=== PATIENT | male | born 1945 | race Caucasian/White ===

== ENCOUNTER 2023-08-21 19:27 | Observation (INO) | payer OTHER ==
[2023-08-21 19:57] LABS: Absolute Lymphocytes (CBC) 2.4 K/uL (0.7-4.9); Hematocrit 40.1 % (39.6-49.0); Lymphocytes % 36.8 % (15.3-44.8); MCV 84.7 fL (80-100); MPV 7.2 fL (7.6-11.3); Platelets 223 thou/uL (152-406); RBC Red Blood Cell Count 4.73 M/uL (4.33-5.43)
[2023-08-21 19:58] LABS: Protime INR 0.99
[2023-08-21 20:02] LABS: Specific Gravity 1.007 (1.005-1.030); Urine Bilirubin NEGATIVE (Negative); Urine Blood Negative (Negative); Urine Clarity Clear (Clear); Urine Color Colorless (Yellow); Urine Glucose NEGATIVE (Negative); Urine Protein NEGATIVE (Negative); Urine Urobilinogen Normal (Normal)
[2023-08-21] MEDS ORDERED: NA CHLORIDE 0.9% 1,000 ML ONE (20:04)
[2023-08-21] MEDS ORDERED: FAMOTIDINE 20 MG/2 ML VIAL IV ONE (20:04)
[2023-08-21] MEDS ORDERED: METOPROLOL TAR 50 MG TAB ONE (20:04)
[2023-08-21] MEDS ORDERED: METOPROLOL TARTRATE 5 MG/5 ML INJ IV ONE (20:04)
[2023-08-21] MEDS ORDERED: MAGNESIUM SULFATE 1 gm IVPB 1 GM/100 ML BAG IV ONE (20:04)
[2023-08-21] MEDS ORDERED: DIGOXIN 0.25 MG/ML AMP ONE (20:04)
--- NOTE | 2023-08-21 20:22 | RAD REPORT ---
EXAM DESCRIPTION: John Single View08/21/2023 8:01 pm CLINICAL HISTORY: Chest pain COMPARISON: 2016 FINDINGS: The lungs appear clear of acute infiltrate. The heart is normal size Postsurgical changes involve the chest IMPRESSION: No acute abnormalities displayed
--- NOTE | 2023-08-21 20:22 | EDPHYS ---
Physician Documentation [facility] Name: Judit Curry Age: 78 yrs Sex: Male : 1945 Arrival Date: 08/21/2023 Time: 19:27 Bed 2 Private MD: ED Physician Chris Bruce HPI: 08/21 20:08 This 78 yrs old Male presents to ER via EMS with complaints of palpitations, keiry racing heart. 20:08 The patient or guardian reports chest pain that is located primarily in the substernal keiry area. Onset: just prior to arrival, today. The patient presents with a history of irregular heart beat, heart racing, heart skipping beats. Context: The symptoms occur at rest. Onset: The symptoms/episode began/occurred this morning, today. Duration: The patient or guardian reports a single episode, that is still ongoing. Modifying factors: The symptoms are aggravated by nothing. The symptoms are alleviated by nothing. The pain does not radiate. Associated signs and symptoms: Pertinent positives: chest pain, SOB. The chest pain is described as aching. Historical: - PMHx: 19:32 family history of cardiac problems; Hyperlipidemia; Myocardial infarction; Atrial rv fibrillation; - PSHx: 19:32 None; rv - Immunization history:: Adult Immunizations up to date. - Social history:: Smoking status: unknown. - Family history:: not pertinent. ROS: 20:08 Constitutional: Negative for fever, chills, and weight loss, Eyes: Negative for injury, keiry pain, redness, and discharge, ENT: Negative for injury, pain, and discharge, Neck: Negative for injury, pain, and swelling, Respiratory: Negative for shortness of breath, cough, wheezing, and pleuritic chest pain, Abdomen/GI: Negative for abdominal pain, nausea, vomiting, diarrhea, and constipation, Back: Negative for injury and pain, : Negative for injury, bleeding, discharge, and swelling, MS/Extremity: Negative for injury and deformity, Skin: Negative for injury, rash, and discoloration, Neuro: Negative for headache, weakness, numbness, tingling, and seizure, Psych: Negative for depression, anxiety, suicide ideation, homicidal ideation, and hallucinations, Allergy/Immunology: Negative for hives, rash, and allergies, Endocrine: Negative for neck swelling, polydipsia, polyuria, polyphagia, and marked weight changes, Hematologic/Lymphatic: Negative for swollen nodes, abnormal bleeding, and unusual bruising, 20:08 Cardiovascular: Positive for chest pain, palpitations, Exam: 20:08 Constitutional: This is a well developed, well nourished patient who is awake, alert, keiry and in no acute distress. Head/Face: Normocephalic, atraumatic. Eyes: Pupils equal round and reactive to light, extra-ocular motions intact. Lids and lashes normal. Conjunctiva and sclera are non-icteric and not injected. Cornea within normal limits. Periorbital areas with no swelling, redness, or edema. ENT: Nares patent. No nasal discharge, no septal abnormalities noted. Tympanic membranes are normal and external auditory canals are clear. Oropharynx with no redness, swelling, or masses, exudates, or evidence of obstruction, uvula midline. Mucous membranes moist. Neck: Trachea midline, no thyromegaly or masses palpated, and no cervical lymphadenopathy. Supple, full range of motion without nuchal rigidity, or vertebral point tenderness. No Meningismus. Chest/axilla: Normal chest wall appearance and motion. Nontender with no deformity. No lesions are appreciated. Respiratory: Lungs have equal breath sounds bilaterally, clear to auscultation and percussion. No rales, rhonchi or wheezes noted. No increased work of breathing, no retractions or nasal flaring. Abdomen/GI: Soft, non-tender, with normal bowel sounds. No distension or tympany. No guarding or rebound. No evidence of tenderness throughout. Back: No spinal tenderness. No costovertebral tenderness. Full range of motion. Male : Normal genitalia with no discharge or lesions. Skin: Warm, dry with normal turgor. Normal color with no rashes, no lesions, and no evidence of cellulitis. MS/ Extremity: Pulses equal, no cyanosis. Neurovascular intact. Full, normal range of motion. Neuro: Awake and alert, GCS 15, oriented to person, place, time, and situation. Cranial nerves II-XII grossly intact. Motor strength 5/5 in all extremities. Sensory grossly intact. Cerebellar exam normal. Normal gait. Psych: Awake, alert, with orientation to person, place and time. Behavior, mood, and affect are within normal limits. 20:08 Cardiovascular: Rate: actual rate is 113 bpm, Rhythm: irregularly irregular, Pulses: Pulses are 4+ in bilateral radial, brachial, femoral, popliteal, posterior tibial and and dorsalis pedis arteries.. Heart sounds: normal, Edema: is not appreciated, JVD: is not appreciated, 20:08 ECG was reviewed by the Attending Physician. Vital Signs: 19:29 BP 193 / 106; Pulse 101; Resp 20; Temp 98; Pulse Ox 96% on R/A; Weight 73.48 kg; Height rv 5 ft. 7 in. ; 20:10 BP 142 / 84; Pulse 82; Resp 17; Pulse Ox 97% on R/A; rv 19:29 Body Mass Index 25.37 (73.48 kg, 170.18 cm) rv MDM: 19:30 Patient medically screened. keiry 20:16 Differential diagnosis: abnormal EKG, acute myocardial infarction, anxiety, chest wall keiry pain, costochondritis, arrythmia, dehydration, hiatal hernia, peptic ulcer disease, pericarditis, pneumonia, pulmonary embolus, stable angina, thoracic aortic disection, unstable angina. HEART Score: History: Slightly Suspicious (0), ECG: Non specific repolarization disturbance / LBTB / PM (1), Age: > or = 65 years (2), Risk Factors: > or = 3 Risk factors for atherosclerotic disease (2), [Hypercholesterolemia] [Hypertension] [+ Family HX] Troponin: < or = 1 x Normal Limit (0). The patient was given aspirin in the Emergency Department. EDMUNDO Risk Score: 1 - patient's age is greater or equal to 65 years, 1 - Three or more CAD risk factors, 1- Known CAD, TOTAL SCORE = 3. Data reviewed: vital signs, nurses notes, EMS record, lab test result(s), EKG, radiologic studies, plain films. Consideration of Admission/Observation Patient was admitted/placed on observation. Escalation of care including admission/observation considered. I considered the following discharge prescriptions or medication management in the emergency department Medications were administered in the Emergency Department. See MAR. Independent interpretation of the following test(s) in the Emergency Department EKG: See my EKG interpretation above. Test considered but Not performed: Ultrasound 2 d echo . Care significantly affected by the following chronic conditions: Hypertension, cad, mi, atrial fibrillation. 08/21 19:32 Order name: Basic Metabolic Panel; Complete Time: 20:45 keiry 08/21 19:32 Order name: CBC with Diff; Complete Time: 20:22 keiry 08/21 19:32 Order name: LFT's; Complete Time: 20:45 keiry 08/21 19:32 Order name: Magnesium; Complete Time: 20:45 keiry 08/21 19:32 Order name: NT PRO-BNP; Complete Time: 20:45 keiry 08/21 19:32 Order name: PT-INR; Complete Time: 20:22 keiry 08/21 19:32 Order name: Troponin HS; Complete Time: 20:45 keiry 08/21 19:32 Order name: Lipase; Complete Time: 20:45 keiry 08/21 19:32 Order name: Urinalysis w/ reflexes; Complete Time: 20:22 keiry 08/21 19:32 Order name: TSH; Complete Time: 20:45 keiry 08/21 20:33 Order name: T4 Free; Complete Time: 20:45 EDFL 08/21 20:51 Order name: Basic Metabolic Panel EDMS 08/21 20:51 Order name: Basic Metabolic Panel EDMS 08/21 20:51 Order name: CBC with Automated Diff EDMS 08/21 20:51 Order name: CBC with Automated Diff EDMS 08/21 20:51 Order name: Magnesium EDMS 08/21 20:52 Order name: Magnesium EDMS 08/21 20:52 Order name: Troponin High Sensitivity EDMS 08/21 20:52 Order name: Troponin High Sensitivity EDMS 08/21 20:52 Order name: Troponin High Sensitivity EDMS 08/21 20:52 Order name: Troponin High Sensitivity EDMS 08/21 19:32 Order name: XRAY Chest (1 view); Complete Time: 20:27 keiry 08/21 19:32 Order name: EKG; Complete Time: 19:33 keiry 08/21 20:49 Order name: CONS Physician Consult EDFL 08/21 19:32 Order name: Cardiac monitoring; Complete Time: 20:09 keiry 08/21 19:32 Order name: EKG - Nurse/Tech; Complete Time: 20:09 keiry 08/21 19:32 Order name: IV Saline Lock; Complete Time: 20:09 keiry 08/21 19:32 Order name: Labs collected and sent; Complete Time: 20:09 keiry 08/21 19:32 Order name: O2 Per Protocol; Complete Time: 20:09 keiry 08/21 19:32 Order name: O2 Sat Monitoring; Complete Time: 20: [facility] 08/21 19:32 Order name: IV Saline Lock - Large Bore; Complete Time: : [facility] EC: Rate is 113 beats/min. Rhythm is regular. QRS [place] is Normal. IA interval is normal. keiry QRS interval is normal. QT interval is normal. No Q waves. T waves are Normal. No ST changes noted. Clinical impression: Atrial Fibrillation and No evidence of ischemia. Interpreted by me. Reviewed by me. Administered Medications: 20: Drug: NS 0.9% IV 1000 ml IV at 125 ml/hr continuous Route: IV; Rate: 125 ml/hr; Site: rv right antecubital; 20:08 Drug: Metoprolol IVP 5 mg IVP once; Hold for SBP <100 or HR <60. Route: IVP; Site: rv right antecubital; 20:09 Drug: Metoprolol PO 50 mg PO once Route: PO; rv 20:09 Drug: Digoxin IVP 0.5 mg IVP once Route: IVP; Site: right antecubital; rv 20:09 Drug: Famotidine IVP 20 mg IVP once; dilute with 10 mL 0.9% NaCl; give over 2 minutes rv Route: IVP; Site: right antecubital; 20:09 Drug: Magnesium Sulfate IVPB 1 grams IVPB once over 1 hrs Route: IVPB; Infused Over: 1 rv hrs; Site: right antecubital; 20:09 Drug: NS 0.9% IV 500 ml IV at bolus once Route: IV; Rate: bolus; Site: right rv antecubital; 20:58 Drug: Potassium PO Effervescent Tablet 50 mEq PO once; dissolve in 4 ounces of water or jb4 juice Route: PO; 21:12 Not Given (Hemodynamic Parameters): metoprolol5 mg IVP once; Hold for SBP <100 or HR bp <60. 21:12 Not Given (Hemodynamic Parameters): metoprolol5 mg IVP once; Hold for SBP <100 or HR bp <60. 21:26 Drug: Metoprolol IVP 5 mg IVP once; Hold for SBP <100 or HR <60. Route: IVP; Site: jb4 right forearm; 21:35 Not Given (Physician Discretion): metoprolol5 mg IVP once; Hold for SBP <100 or HR <60. jb4 Disposition Summary: 08/21/23 20:21 Hospitalization Ordered Notes: Hospitalization Status: Inpatient Admission keiry [facility] keiry Condition: Stable keiry Problem: new keiry Symptoms: have improved keiry Bed/Room Type: Standard keiry Room Assignment: 230(08/21/23 20:51) Provider: Misael Ha(08/21/23 21:14) keiry Diagnosis - Persistent atrial fibrillation - new onset keiry - Palpitations keiry Forms: - Medication Reconciliation Form keiry - SBAR form keiry - Leadership Thank You Letter keiry Signatures: Dispatcher [employer] EDChris German MD MD cha Garcia, Cindy RN RN cg Cedric Horn RN RN jb4 Carl Esqueda RN RN rv Ashkan Pryor RN bp Corrections: (The following items were deleted from the chart) 20:51 20:21 keiry 21:14 20:21 Preeti Adams cha keiry
--- NOTE | 2023-08-21 20:22 | ER ---
Nurse's Notes [facility] Name: Judit Curry Age: 78 yrs Sex: Male : 1945 Arrival Date: 08/21/2023 Time: 19:27 Bed 2 Private MD: Diagnosis: Persistent atrial fibrillation-new onset;Palpitations Presentation: 08/21 19:29 Chief complaint: EMS states: SUDDEN ONSET OF DIZZINESS. SVT ON THE MONITOR, WAS GIVEN rv ADENOSINE TOTAL OF 24MG IV. COMPLAINING OF MILD CHEST PRESSURE, LEFT ANT CHEST WALL, NON RADIATING. HX OF ND, A-FIB. Coronavirus screen: At this time, the client does not indicate any symptoms associated with coronavirus-19. Ebola Screen: No symptoms or risks identified at this time. Initial Sepsis Screen: Does the patient meet any 2 criteria? No. Patient's initial sepsis screen is negative. Does the patient have a suspected source of infection? No. Patient's initial sepsis screen is negative. Risk Assessment: Do you want to hurt yourself or someone else? Patient reports no desire to harm self or others. Onset of symptoms was August 21, 2023. 19:29 Method Of Arrival: EMS: [facility] rv 19:29 Acuity: MARILU 2 rv Triage Assessment: 19:32 General: Appears comfortable, Behavior is calm, cooperative. Pain: Complains of pain in rv chest. Neuro: Level of Consciousness is awake, alert, obeys commands, Oriented to person, place, time, situation. Cardiovascular: Capillary refill < 3 seconds Patient's skin is warm and dry. Rhythm is atrial fibrillation with rapid ventricular response. Cardiovascular: Reports chest pain. Respiratory: Airway is patent Respiratory effort is even, unlabored. GI: No signs and/or symptoms were reported involving the gastrointestinal system. : No signs and/or symptoms were reported regarding the genitourinary system. Musculoskeletal: No signs and/or symptoms reported regarding the musculoskeletal system. Historical: - PMHx: 19:32 family history of cardiac problems; Hyperlipidemia; Myocardial infarction; Atrial rv fibrillation; - PSHx: 19:32 None; rv - Immunization history:: Adult Immunizations up to date. - Social history:: Smoking status: unknown. - Family history:: not pertinent. Screenin:33 [facility] ED Fall Risk Assessment (Adult) History of falling in the last 3 months, rv including since admission No falls in past 3 months (0 pts) Confusion or Disorientation No (0 pts) Intoxicated or Sedated No (0 pts) Impaired Gait No (0 pts) Mobility Assist Device Used No (0 pt) Altered Elimination No (0 pt) Score/Fall Risk Level 0 - 2 = Low Risk Oriented to surroundings, Maintained a safe environment, Educated pt \T\ family on fall prevention, incl call for assistance when getting out of bed, Assessed \T\ reinforced patient's understanding of fall precautions, Provided non-skid footwear, Hourly rounding (assess needs \T\ fall precautionary measures) done, Used ambulatory aids as needed (educated on \T\ assisted with), Used gait belt as appropriate. Abuse screen: Denies threats or abuse. Denies injuries from another. Nutritional screening: No deficits noted. Tuberculosis screening: No symptoms or risk factors identified. Assessment: 19:33 Reassessment: SEE TRIAGE NOTES. rv Vital Signs: 19:29 BP 193 / 106; Pulse 101; Resp 20; Temp 98; Pulse Ox 96% on R/A; Weight 73.48 kg; Height rv 5 ft. 7 in. ; 20:10 BP 142 / 84; Pulse 82; Resp 17; Pulse Ox 97% on R/A; rv 19:29 Body Mass Index 25.37 (73.48 kg, 170.18 cm) rv ED Course: 19:29 Patient arrived in ED. rv1 19:29 Carl Esqueda RN is Primary Nurse. rv 19:30 Chris Bruce MD is Attending Physician. keiry 19:31 Triage completed. rv 19:32 Arm band placed on right wrist. rv 19:33 Patient has correct armband on for positive identification. Client placed on continuous rv cardiac and pulse oximetry monitoring. NIBP monitoring applied. Pulse ox on. 19:33 Maintain EMS IV. Dressing intact. Good blood return noted. Site clean \T\ dry. Gauge \T\ rv site: 20 RAC. 20:03 XRAY Chest (1 view) In Process Unspecified. EDMS 20:10 Inserted saline lock: 20 gauge in right forearm, using aseptic technique. rv 20:18 Preeti Adams MD is Hospitalizing Provider. keiry 21:01 No provider procedures requiring assistance completed. Patient admitted, IV remains in rv place. 21:14 Misael Ha MD is Hospitalizing Provider. keiry Administered Medications: 20:08 Drug: NS 0.9% IV 1000 ml IV at 125 ml/hr continuous Route: IV; Rate: 125 ml/hr; Site: rv right antecubital; 20:08 Drug: Metoprolol IVP 5 mg IVP once; Hold for SBP <100 or HR <60. Route: IVP; Site: rv right antecubital; 20:09 Drug: Metoprolol PO 50 mg PO once Route: PO; rv 20:09 Drug: Digoxin IVP 0.5 mg IVP once Route: IVP; Site: right antecubital; rv 20:09 Drug: Famotidine IVP 20 mg IVP once; dilute with 10 mL 0.9% NaCl; give over 2 minutes rv Route: IVP; Site: right antecubital; 20:09 Drug: Magnesium Sulfate IVPB 1 grams IVPB once over 1 hrs Route: IVPB; Infused Over: 1 rv hrs; Site: right antecubital; 20:09 Drug: NS 0.9% IV 500 ml IV at bolus once Route: IV; Rate: bolus; Site: right rv antecubital; 20:58 Drug: Potassium PO Effervescent Tablet 50 mEq PO once; dissolve in 4 ounces of water or jb4 juice Route: PO; 21:12 Not Given (Hemodynamic Parameters): metoprolol5 mg IVP once; Hold for SBP <100 or HR bp <60. 21:12 Not Given (Hemodynamic Parameters): metoprolol5 mg IVP once; Hold for SBP <100 or HR bp <60. 21:26 Drug: Metoprolol IVP 5 mg IVP once; Hold for SBP <100 or HR <60. Route: IVP; Site: jb4 right forearm; 21:35 Not Given (Physician Discretion): metoprolol5 mg IVP once; Hold for SBP <100 or HR <60. jb4 Medication: 19:33 VIS not applicable for this client. rv Outcome: 20:21 Decision to Hospitalize by Provider. keiry 21:35 Admitted to Med/surg accompanied by tech, via wheelchair, room 230, with chart, jb4 21:35 Condition: stable 21:35 Discharge instructions given to patient, Instructed on the need for admit, Demonstrated understanding of instructions, 21:36 Patient left the ED. jb4 Signatures: Dispatcher [employer] Chris Cool MD MD cha Bryson, James RN RN jb4 Carl Esqueda RN RN Alta Armstrong rv1 Ashkan Pryor RN bp
[2023-08-21 20:30] LABS: ALT/SGPT 29 U/L (16-61); AST/SGOT 27 U/L (15-37); Albumin 3.4 g/dL (3.4-5.0); Alkaline Phosphatase 110 U/L (45-117); BUN Blood Urea Nitrogen 16 mg/dL (7-18); Bicarbonate 25 mEq/L (21-32); Bilirubin Direct < 0.1 mg/dL (0-0.2); Bilirubin Indirect, Calculated ND mg/dL (0.2-0.8); Bilirubin Total 0.3 mg/dL (0.2-1.0); Glomerular Filtration Rate 76 ml/min (=/>90); Glucose Level 120 mg/dL (74-106); Lipase 52 U/L (13-75); Magnesium 2.2 mg/dL (1.6-2.4); NT PRO-BNP 137 pg/mL (<450); Potassium 3.5 mEq/L (3.5-5.1); Protein, Total 6.9 g/dL (6.4-8.2); Sodium Level 141 mEq/L (136-145); Troponin High Sensitivity 7.9 pg/mL (<58.9)
--- NOTE | 2023-08-21 20:40 | P.HP ---
Certification for Inpatient Patient admitted to: Observation With expected LOS: <2 Midnights Patient will require the following post-hospital care: None Practitioner: I am a practitioner with admitting privileges, knowledge of patient current condition, hospital course, and medical plan of care. Services: Services provided to patient in accordance with Admission requirements found in Title 42 Section 412.3 of the Code of Federal Regulations Patient History Date of Service: 08/21/23 Reason for admission: Palpitations History of Present Illness: 78-year-old male with a past medical history of hypertension, hyperlipidemia, MD, atrial fibrillation presents to the emergency room with palpitations. He reports associated chest pain that is describes substernal that occurred prior today. 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 He reports episode of atrial fibrillation CAB postop previously. EKG Rate is 113 beats/min. Rhythm is regular. QRS [place] is Normal. [place] interval is normal. QRS interval is normal. QT interval is normal. No Q waves. T waves are Normal. No ST changes noted. Clinical impression: Atrial Fibrillation and No evidence of ischemia. 9 BP 193 / 106; Pulse 101; Resp 20; Temp 98; Pulse Ox 96% on R/A, patient was treated with metoprolol 5 mg IVP, mag sulfate, Pepcid, dig IVP 0.5x1, metoprolol 50 p.o. x1. Plan to admit for A-fib RVR, with cardiology to consult. Laboratory evaluation CBC unremarkable CMP slightly elevated blood glucose 120 mild hypocalcemia at 7.6, BUN/creatinine potassium normal. Hypothyroidism TSH 3.760. UA negative, chest x-ray no acute abnormalities Allergies No Known Allergies Allergy (Unverified 06/23/16 00:33) Home Medications: NK [No Home Meds] 08/21/23 - Past Medical/Surgical History Diabetic: No -: high cholesterol -: tinnitis -: Hypertension -: Previous episode atrial fibrillation -: heart cath -: appy - Family History Father -: Heart disease Mother -: Other (see notes) Notes: dementia - Social History Alcohol use: Yes CD- Drugs: No Caffeine use: Yes Review of Systems 10-point ROS is otherwise unremarkable Physical Examination - Physical Exam General: Alert, In no apparent distress, Oriented x3, Oriented x2 HEENT: Atraumatic, Normocephalic, PERRLA Neck: Supple, 2+ carotid pulse no bruit, JVD not distended Respiratory: Clear to auscultation bilaterally, Normal air movement Cardiovascular: No edema, Normal pulses, Irregular heart rate/rhythm Capillary refill: <2 Seconds Gastrointestinal: Normal bowel sounds, Soft and benign, Non-distended Musculoskeletal: No clubbing, No swelling Neurological: Normal gait, Normal speech, Normal strength at 5/5 x4 extr - Studies Laboratory Data (last 24 hrs) 08/21/23 08/21/23 08/21/23 19:40 19:40 19:40 WBC 6.60 Hgb 13.6 Hct 40.1 Plt Count 223 PT 10.9 INR 0.99 Sodium 141 Potassium 3.5 BUN 16 Creatinine 1.02 Glucose 120 H Magnesium 2.2 Total Bilirubin 0.3 AST 27 ALT 29 Alkaline Phosphatase 110 Lipase 52 Assessment and Plan - Plan Assessment and plan A-fib RVR-acute History of a CABG patient (denies taking medications for hypertension hyperlipidemia, anticoagulation) Hypothyroidism Hypocalcemia Occasional alcohol use DVT prophylaxis Assessment and plan A-fib RVR-acute History of a CABG patient (denies taking medications for hypertension hyperlipidemia, anticoagulation) Cardiology consult, IV metoprolol, p.o. metoprolol added, Lipid panel in the a.m., A1c in the a.m., trend blood pressures, heart rate Telemetry EKG Rate is 113 beats/min. Rhythm is regular. QRS [place] is Normal. IN interval is normal. QRS interval is normal. QT interval is normal. No Q waves. T waves are Normal. No ST changes noted. Clinical impression: Atrial Fibrillation and No evidence of ischemia. 9 BP 193 / 106; Pulse 101; Resp 20; Temp 98; Pulse Ox 96% on R/A, patient was treated with metoprolol 5 mg IVP, mag sulfate, Pepcid, dig IVP 0.5x1, metoprolol 50 p.o. x1. chest x-ray no acute abnormalities Hypothyroidism Start low-dose Synthroid Hypothyroidism TSH 3.760. UA negative, Hypocalcemia Trend electrolytes replace as needed mild hypocalcemia at 7.6 Alcohol use Educated on moderation cessation Diet cardiac Full code DVT Lovenox Discharge Plan: Home Plan to discharge in: 24 Hours - Advance Directives Does patient have a Living Will: No Does patient have a Durable POA for Healthcare: No - Code Status/Comfort Care Code Status: Full Code Physician Review: Patient Assessed, Agree with Above Assessment and Plan Critical Care: No Time Spent Managing Pts Care (In Minutes): 50
[2023-08-21] MEDS ORDERED: METOPROLOL TARTRATE 5 MG/5 ML INJ IV PRN (20:47)
[2023-08-21] MEDS ORDERED: ACETAMINOPHEN 500 MG TAB PO PRN (20:47)
[2023-08-21] MEDS ORDERED: POTASSIUM 25 MEQ EFFERV TAB ONE (21:04)
[2023-08-21 21:55] VITALS: BMI 22.7
[2023-08-21 22:49] VITALS: O2SAT 97
[2023-08-22 04:05] LABS: Absolute Lymphocytes (CBC) 1.8 K/uL (0.7-4.9); Lymphocytes % 28.6 % (15.3-44.8); MCV 85.1 fL (80-100); MPV 7.3 fL (7.6-11.3); Platelets 200 thou/uL (152-406); RBC Red Blood Cell Count 4.47 M/uL (4.33-5.43)
[2023-08-22 04:26] LABS: Magnesium 2.5 mg/dL (1.6-2.4); Potassium 5.3 mEq/L (3.5-5.1)
[2023-08-22 04:49] LABS: Troponin High Sensitivity 62.2 pg/mL (<58.9)
[2023-08-22] MEDS ORDERED: METOPROLOL TAR 25 MG TAB PO SCH (06:00)
[2023-08-22] MEDS ORDERED: LEVOTHYROXINE SOD 0.025 MG TAB PO SCH (06:30)
[2023-08-22] MEDS ORDERED: ENOXAPARIN 40 MG/0.4 ML SQ SCH (09:00)
[2023-08-22] MEDS ORDERED: ASPIRIN 325 MG TAB PO SCH (09:00)
[2023-08-22 09:07] VITALS: BP 161/76; TEMP 97
--- NOTE | 2023-08-22 12:51 | P.DS ---
Admission Date: 08/21/23 Discharge Date: 08/22/23 Disposition: ROUTINE DISCHARGE Discharge Condition: FAIR Reason for Admission: Palpitations Brief History of Present Illness: New onset A-fib Hospital Course: Patient is 78 years of age admitted with sudden onset of irregular heartbeat feeling dizzy had a history of CABG before prior history of atrial fibrillation he was admitted did well in by cardiology plan was to rate controlled with metoprolol and Eliquis to follow-up with cardiology chest x-ray was also clear at time of discharge patient was doing well no further dizziness vital signs all stable chest clear descriptions faxed Vital Signs/Physical Exam: Temp Pulse Resp BP Pulse Ox 97.0 F 48 L 23 H 161/76 H 99 08/22/23 08:00 08/22/23 08:00 08/22/23 08:00 08/22/23 08:00 08/22/23 08:00 Laboratory Data at Discharge: WBC 6.20 thou/uL (4.3-10.9) 08/22/23 03:41 Hgb 12.7 g/dL (13.6-17.9) L 08/22/23 03:41 Hct 38.0 % (39.6-49.0) L 08/22/23 03:41 Plt Count 200 thou/uL (152-406) 08/22/23 03:41 PT 10.9 SECONDS (9.5-12.5) 08/21/23 19:40 INR 0.99 08/21/23 19:40 Sodium 142 mEq/L (136-145) 08/22/23 03:41 Potassium 5.3 mEq/L (3.5-5.1) H D 08/22/23 03:41 BUN 15 mg/dL (7-18) 08/22/23 03:41 Creatinine 1.03 mg/dL (0.70-1.30) 08/22/23 03:41 Glucose 103 mg/dL (74-106) 08/22/23 03:41 Magnesium 2.5 mg/dL (1.6-2.4) H 08/22/23 03:41 Total Bilirubin 0.3 mg/dL (0.2-1.0) 08/21/23 19:40 AST 27 U/L (15-37) 08/21/23 19:40 ALT 29 U/L (16-61) 08/21/23 19:40 Alkaline Phosphatase 110 U/L (45-117) 08/21/23 19:40 Triglycerides Cancelled 08/22/23 06:00 Cholesterol Cancelled 08/22/23 06:00 HDL Cholesterol Cancelled 08/22/23 06:00 Cholesterol/HDL Ratio Cancelled 08/22/23 06:00 Lipase 52 U/L (13-75) 08/21/23 19:40 Home Medications: Apixaban [Eliquis] 5 mg PO BID 30 Days #60 tab 08/22/23 Metoprolol Tartrate [Lopressor*] 25 mg PO BID 6AM 6PM 30 Days #60 tab 08/22/23 New Medications: Apixaban [Eliquis] 5 mg PO BID 30 Days #60 tab Metoprolol Tartrate [Lopressor*] 25 mg PO BID 6AM 6PM 30 Days #60 tab Followup: Mitch Rudd DO [Primary Care Provider] - 1-2 Weeks Drew Brizuela MD [ACTIVE - CAN ADMIT] - 1-2 Weeks
--- NOTE | 2023-08-22 16:59 | EKG ---
Test Date: 2023-08-21 Test Time: 19:39:13 Laundry Clerk: RV MEASUREMENT RESULTS: Intervals: Rate: 113 CO: 114 QRSD: 88 QT: 318 QTc: 436 [place]: P: 61 CO: 114 QRS: 63 T: 242 INTERPRETIVE STATEMENTS: Sinus tachycardia with premature atrial complexes ST & T wave abnormality, consider inferolateral ischemia Abnormal ECG Compared to ECG 06/24/2016 05:34:49 Atrial premature complex(es) now present ST (T wave) deviation now present Sinus bradycardia no longer present T-wave abnormality no longer present Possible ischemia still present Electronically Signed On 08-22-23 16:56:21 CDT by Drew Brizuela
--- NOTE | 2023-08-22 22:05 | CON ---
Date of Consultation: 08/22/2023 Reason For Consultation: Atrial fibrillation. History Of Present Illness: A 78-year-old male with history of hypertension, dyslipidemia, coronary artery disease, and paroxysmal atrial fibrillation, presented with palpitation, found to be in atrial fibrillation with rapid ventricular response. He denies having chest pain or shortness of breath wi th it. After metoprolol, he converted into sinus rhythm and has been in sinus rhythm since. Past Medical History: As outlined above in the HPI. Medications: Refer reconciliation sheet for detailed list. Allergies: NO KNOWN DRUG ALLERGIES. Family History: No premature coronary artery disease or cancer. Social History: He does not smoke. He drinks occasionally. He does not use any drugs. Review of Systems: All systems reviewed are negative except as mentioned in HPI. Physical Examination: Vital Signs: Reviewed. Head and Neck: Pupils are equal, reactive to light. Intact eye movements. No JVD. No cervical lym phadenopathy. Neck is supple. Thyroid is not enlarged. Lungs: Clear to auscultation bilaterally. No rhonchi, wheezing, or crackles. No accessory muscle u se. Heart: Regular rate and rhythm. No extra sounds. Abdomen: Soft, nontender. Bowel sounds positive. No organomegaly. No masses or hernia. No rigidi ty or rebound. Extremities: No edema, clubbing, or cyanosis. Intact pulses. Skin: No rash. Neurologic: Alert, awake, oriented x3. No acute focal deficits appreciated. Investigations: Cardiac enzymes x2 are negative. BUN 16, creatinine 1.02. Assessment/recommendation: 1.Atrial fibrillation converted to sinus rhythm. Continue metoprolol and Eliquis 5 mg twice a day. The patient can be released. Follow up with me in the office in 1 week. 2.Borderline elevated troponin 62.2. We will plan for outpatient stress test. 3.Dyslipidemia. LDL is 166. Recommend Lipitor 40 mg at bedtime. Follow up with me post discharge within 1 week. SR/MODL Voice ID: [id number] Report ID: [id number]
== END 2023-08-22 11:20 | disposition home or self-care (01) ==
LOC: ER 19:27 → ERHOLD 20:46 → 2ND 21:11
PROVIDERS: ADMIT Internal Medicine Sleep Medicine; ATTEND Internal Medicine Sleep Medicine
DX: I48.91 Unspecified atrial fibrillation (principal); I10 Essential (primary) hypertension; E78.5 Hyperlipidemia, unspecified; I25.2 Old myocardial infarction; E03.9 Hypothyroidism, unspecified; E83.51 Hypocalcemia; F10.90 Alcohol use, unspecified, uncomplicated; Z95.1 Presence of aortocoronary bypass graft
CPT/HCPCS: 36415; 71045; 80048; 80061; 80076; 81003; 83036; 83690; 83735; 83880; 84439; 84443; 84484; 85025; 85610; 93005; 99285; G0378; J1160; J1650; J3475; J7030